=== PATIENT | female | born 1975 | race Caucasian/White ===

== ENCOUNTER → 2018-09-27 | Day surgery (SDC) | payer BC ==
[~2018-09-27] MED LIST: Dexamethasone 20 MG/5 ML VIAL ONE; Lidocaine 1% PF 5 ML VIAL ONE; Ondansetron PF 4 MG/2 ML Vial ONE; PROPOFOL 200 MG/20 ML VIAL ONE; diphenhydrAMINE 50 MG/ML VIAL ONE; ePHEDrine 50 MG/ML VIAL ONE
[2018-09-27 17:30] LABS: #Basophils 0.1 thou/uL (0.0-0.2); #Eosinphils 0.4 thou/uL (0.0-0.7); #Monocytes 0.4 thou/uL (0.11-0.59); #Neutrophils 2.9 thou/uL (1.40-6.50); %Eosinophils 6.4 % (0.0-10.0); %Lymphocytes 44.4 % (21.0-51.0); %Monocytes 5.2 % (0.0-10.0); Hemoglobin 13.4 g/dL (12.0-16.0); Mean Corpuscular HGB CONC 35.3 g/dL (32.0-36.0); Mean Corpuscular Volume 96.2 fL (78.0-98.0); Mean Platelet Volume 7.6 fL (7.4-10.4); Platelet Count 221 thou/uL (130-400); RBC Distribution Width 10.6 % (11.5-14.5); Red Blood Cell (RBC) Count 3.93 mill/uL (4.20-5.40); White Blood Cell (WBC) Count 6.7 thou/uL (4.8-10.8)
--- NOTE | 2018-09-28 14:24 | OP ---
DATE OF PROCEDURE: 09/27/2018 PREOPERATIVE DIAGNOSIS: Left flexor carpi radialis laceration zone 5 with 3 cm laceration. POSTOPERATIVE DIAGNOSIS: Left flexor carpi radialis laceration zone 5 with 3 cm laceration and 5 cm wound. PROCEDURES PERFORMED: 1. Debridement of wound, 36738, depth. 2. Closure of wound, 5 cm, 61313. 3. Repair of flexor carpi radialis tendons, , zone 5. 4. Application of short-arm splint with the wrist at 20 degrees of palmar flexion. ANESTHESIA: DONNELL Nix from [facility]. COMPLICATIONS: None. BLOOD LOSS: 20 mL. TOURNIQUET TIME: 29 minutes. DESCRIPTION OF PROCEDURE: After successful general endotracheal anesthesia, the patient had been prepped and draped. The patient then had the wound extended 1 cm distal, 2 cm proximal, and in the dissection, there was some muscle belly damage, which was debrided using a combination of tenotomy scissors, pick remover and Metzenbaum scissors, excisional technique, and then it was irrigated. We also kept the depth in muscle belly only, not violating the deep fascia over the median nerve plane. Median nerve had been found to be clearly intact in prior neurovascular examination before the surgery. Then we visualized the flexor carpi radialis tendon, which at this point became zone 5, a flat muscle preparing for its origin attachment. Musculotendinous junction was nearby. We then found the tendon, the fascia, and finished the hematoma irrigation and debridement as described above, and then using the Louie-Jose technique with the loop suture, 3.0 , we then 10 degrees of palmar flexion 4-0 Prolene and the patient was inspected, no hematoma, clot or infection seen, no further muscle debris. We debrided the wound edges in a 3.5 area including another 3 cm for surgical incision and we were able to obtain hemostasis with tourniquet inflated. We closed the wound in 2 layers with a running 4-0 Monocryl for deep dermal closure and the epidermis with 4-0 nylon interrupted mattress pattern. Bulky dressing was applied with a sugar-tong splint. The patient left the operating room without evidence of anesthetic or operative complication. Job ID: [id number]
== END | disposition home or self-care (01) ==
LOC: SDC 16:25
PROVIDERS: ATTEND Orthopaedic Surgery Hand Surgery
PROC: 0LQ60ZZ Repair Left Lower Arm and Wrist Tendon, Open Approach (ICD-10-PCS; principal; 2018-09-27)
DX: S56.222D Laceration of other flexor muscle, fascia and tendon at forearm level, left arm, subsequent encounter (principal); W26.0XXD Contact with knife, subsequent encounter
CPT/HCPCS: 36415; 85025; J1100; J1200; J2001; J2405; J2704; J3490

== ENCOUNTER 2022-02-10 07:14 | Outpatient (CLI) | payer BC | END 2022-02-10 07:15 | disposition home or self-care (01) | LOC: BICULT 07:14 | PROVIDERS: ATTEND Internal Medicine Gastroenterology | DX: R10.13 Epigastric pain (principal); K58.9 Irritable bowel syndrome, unspecified; A69.20 Lyme disease, unspecified; K82.4 Cholesterolosis of gallbladder | CPT/HCPCS: 76700 ==